=== PATIENT | male | born 1955 | race Caucasian/White ===

== ENCOUNTER 2020-04-03 11:33 | Outpatient (CLI) | payer MEDICARE, OTHER ==
--- NOTE | 2020-04-03 12:01 | RAD ---
EXAM: Chest PA and lateral: HISTORY: Preoperative evaluation COMPARISON: None FINDINGS: Heart size:Within normal limits. Lungs:Clear of acute process. No confluent pneumonia, overt edema, pleural effusion, or other acute process. IMPRESSION: No significant acute intrathoracic disease. Atherosclerosis of the aorta.
[2020-04-03 14:03] LABS: Hemoglobin A1c 5.9 % (4.0-6.0)
[2020-04-03 14:04] LABS: #Eosinphils 0.3 thou/uL (0.0-0.7); #Lymphocytes 1.9 thou/uL (1.20-3.40); %Basophils 0.4 % (0.0-1.0); %Eosinophils 2.5 % (0.0-10.0); %Lymphocytes 18.6 % (21.0-51.0); %Monocytes 9.9 % (0.0-10.0); %Neutrophils 68.6 % (42.0-75.0); Hemoglobin 13.5 g/dL (14.0-18.0); Mean Corpuscular HGB CONC 34.3 g/dL (32.0-36.0); Mean Corpuscular Hemoglobin 31.3 pg (27.0-31.0); Mean Corpuscular Volume 91.5 fL (78.0-98.0); Mean Platelet Volume 8.6 fL (7.4-10.4); Platelet Count 227 thou/uL (130-400); RBC Distribution Width 12.1 % (11.5-14.5); White Blood Cell (WBC) Count 10.3 thou/uL (4.8-10.8)
[2020-04-03 14:17] LABS: ALT (SGPT) 14 U/L (8-55); AST (SGOT) 12 U/L (5-34); Alkaline Phosphatase 65 U/L (40-110); Anion Gap 11 mmol/L (10-20); BUN (Urea Nitrogen) 10 mg/dL (8.4-25.7); Bilirubin, Total 0.5 mg/dL (0.2-1.2); Calc. Creatinine Clearance 0 mL/min (70-130); Calcium 9.1 mg/dL (7.8-10.44); Carbon Dioxide 27 mmol/L (23-31); Cardiac Risk 2.8 (Less than 4.5); Chloride 105 mmol/L (98-107); Cholesterol 104 mg/dl (< 200 Desired); Estimated GFR-MDRD 82; Globulin 2.4 g/dL (2.4-3.5); Glucose 104 mg/dL (80-115); HDL Cholesterol 37 mg/dL (>60 Neg Risk); LDL Cholesterol, Calculated 44 mg/dL; Potassium 4.4 mmol/L (3.5-5.1); Protein, Total 6.4 g/dL (5.8-8.1); Sodium 139 mmol/L (136-145); Triglycerides 117 mg/dL (Less than 150)
[2020-04-03 14:33] LABS: INR-International Normal Ratio 1.1; Prothrombin Time 13.9 sec (12.0-14.7)
[2020-04-03 14:34] LABS: PTT 31.3 sec (22.9-36.1)
[2020-04-03 14:36] LABS: Creatinine, Urine 121.81 mg/dL (63-166); Microalbumin Urine Less than 1.0 mg/dL (0.5-50.0)
[2020-04-03 14:43] LABS: Free T4 (Free Thyroxine) 0.71 ng/dL (0.70-1.48); Thyroid Stimulating Hormone 1.1845 uIU/mL (0.35-4.94)
== END 2020-04-03 11:34 | disposition home or self-care (01) ==
LOC: SCSRAD 11:33
PROVIDERS: ATTEND Family Medicine
DX: Z01.818 Encounter for other preprocedural examination (principal); Z11.59 Encounter for screening for other viral diseases; E11.49 Type 2 diabetes mellitus with other diabetic neurological complication; I70.0 Atherosclerosis of aorta
CPT/HCPCS: 36415; 71046; 80053; 80061; 82043; 83036; 84439; 84443; 85025; 85610; 85730; 87521

== ENCOUNTER 2020-07-12 10:06 | Outpatient (CLI) | payer MEDICARE, OTHER ==
--- NOTE | 2020-07-12 12:20 | ULT ---
ULTRASOUND LEFT LOWER EXTREMITY VENOUS DOPPLER: Date: 07/12/2020 HISTORY: Trauma. COMPARISON: None. FINDINGS: Real-time Gilbert scale and color Doppler with spectral analysis of the left lower extremity venous syst em was performed. The common femoral, femoral, proximal portions of greater saphenous and deep femora l veins, as well as the popliteal and posterior tibial veins were interrogated. Normal flow, augmentation, and compression. IMPRESSION: No deep venous thrombosis. POS: [facility]
== END 2020-07-12 10:07 | disposition home or self-care (01) ==
LOC: BICULT 10:06
PROVIDERS: ATTEND Family Medicine
DX: M79.605 Pain in left leg (principal)